=== PATIENT | male | born 1980 | race African-American/Black ===

== ENCOUNTER 2017-02-04 10:45 | Emergency (ER) | payer SELFPAY ==
[~2017-02-04] VITALS: Ht 188 cm; Wt 106.6 kg
[2017-02-04] MEDS ORDERED: NORCO 5-325 TA1 EACH ORAL (11:14)
[2017-02-04] MEDS ORDERED: BACTRIM DS TAB1 EAC1 ORAL (11:14)
[2017-02-04] MEDS ORDERED: Norco 5mg/325mg tab ORAL ONE (11:15)
[2017-02-04] MEDS ORDERED: Bactrim DS (160mg/800mg) tab ORAL ONE (11:15)
[2017-02-04 11:27] VITALS: BP 145/89
[2017-02-04 11:32] VITALS: BP 145/89
--- NOTE | 2017-02-04 11:33 | Emergency Room Report ---
History of Present Illness General Chief Complaint: Skin Rash/Abscess Source: Patient Present Illness HPI This is a 37-year-old male presented after increased pain swelling to his left buttock.. The patient had a gradual onset of symptoms. This had noted to have some purulent material. Patient had prior abscess when his child has not had abscesses since. Denies Prior medical history. Patient had any fever. He had not been vomiting. Allergies: Coded Allergies: No Known Allergies (Unverified , 02/04/17) Patient History Past Medical History: see triage record Reviewed Nursing Documentation: PMH: Agreed, PSxH: Agreed Nursing Documentation-PMH Past Medical History: No Stated History Review of Systems All Other Systems: negative except mentioned in HPI Physical Exam Vital Signs Date Time Temp Pulse Resp B/P Pulse Ox O2 Delivery O2 Flow Rate FiO2 02/04/17 10:49 98.2 147 15 152/101 99 Room Air General Appearance: well appearing, no apparent distress, alert, GCS 15 Head: normocephalic, atraumatic ENT: hearing grossly normal, normal voice Neck: full range of motion, supple Respiratory: no respiratory distress, speaking full sentences Musculoskeletal: no calf tenderness Neurologic: normal inspection, alert, oriented x3, evp [employer] product leadership III-XII nml as tested, motor strength/tone normal, normal gait Psychiatric: mood/affect normal Skin: no rash, other - abscess to left buttock with drainage near medial aspect of buttock Medical Decision Making Diagnostic Impression: Primary Impression: Skin abscess ER Course Patient presented for left buttock swelling. Differential diagnosis included was not limited to abscess, cellulitis, necrotizing fasciitis among others. Patient's benign exam and does not appear to require any further imaging or laboratory testing at this time. Patient was noted to have spontaneous drainage from abscess. Patient had drainage of approximately 30 mL of aj purulent material. The patient was given oral antibiotics as well as [place] for pain. He was advised to have wound rechecked in the next few days. Patient given prescription for antibiotics and pain medications. The patient is advised to return if he began having increased fever persistent pain or other concerns. Last Vital Signs Date Time Temp Pulse Resp B/P Pulse Ox O2 Delivery O2 Flow Rate FiO2 02/04/17 11:27 98.2 98 17 145/89 99 Room Air Disposition: HOME, SELF-CARE Condition: Stable Scripts Hydrocodone Bit/Acetaminophen 5-325* (NORCO 5-325*) 1 Each Tablet 1 TAB ORAL Q6H Y for For Pain, #10 TAB 0 Refills Prov: Alcon Dominguez 02/04/17 Trimethoprim/Sulfamethoxazole 160/800* (BACTRIM DS TABLET*) 1 Each Tablet 1 TAB ORAL Q12H, #14 TAB 0 Refills Prov: Alcon Dominguez 02/04/17 Patient Instructions: Abscess Alcon Dominguez Feb 04, 2017 11:33
== END 2017-02-04 11:33 | disposition home or self-care (01) ==
LOC: EMR 11:03
DX: L02.31 Cutaneous abscess of buttock (principal)
CPT/HCPCS: 99284